=== PATIENT | male | born 1945 | race Caucasian/White ===

== ENCOUNTER 2018-01-11 08:42 | Inpatient (IN) | payer OTHER, MEDICARE ==
[~2018-01-11] VITALS: Ht 182.9 cm; Wt 106.2 kg
--- NOTE | 2018-01-11 09:05 | ED GENERAL ADULT ---
History of Present Illness General Chief Complaint: General Adult Stated Complaint: BIBA WEAKNESS Source: patient Exam Limitations: no limitations Vital Signs & Intake/Output Vital Signs & Intake/Output Vital Signs Date Time Temp Pulse Resp B/P B/P Pulse O2 O2 Flow FiO2 Mean Ox Delivery Rate 01/11 0851 96.1 77 18 133/71 98 Allergies Coded Allergies: Penicillins (HIVES AND HALLUCINATIONS 01/11/18) Triage Nurses Notes Reviewed? yes Onset: Abrupt Duration: hour(s): Timing: recent history HPI: 01/11/18 9 AM 72-year-old man presents to the emergency department for altered mental status. According to the family he has been not acting in his usual state of mental capacity. The patient denies any complaints. He does have a history of Parkinson's disease. There has been a recent change to his medications. No fever. Medics report that there was foul-smelling urine in the apartment. Past History Travel History Traveled to [place] past 21 day No Medical History Any Pertinent Medical History? see below for history Neurological: parkinson's disease Surgical History Surgical History: non-contributory Family History Hx Contributory? No Review of Systems Review of Systems Constitutional: Denies: fever. EENTM: Denies: double vision. Respiratory: Denies: short of breath. Cardiovascular: Denies: chest pain. GI: Denies: abdominal pain. Genitourinary: Reports: no symptoms. Musculoskeletal: Reports: see HPI. Skin: Denies: rash. Neurological/Psychological: Reports: see HPI. Hematologic/Endocrine: Reports: no symptoms. Immunologic/Allergic: Reports: no symptoms. Physical Exam Physical Exam General Appearance: well developed/nourished, no apparent distress, alert, awake , anxious Head: atraumatic, normal appearance Eyes: Bilateral: normal appearance, PERRL, EOMI. Ears, Nose, Throat: normal pharynx, normal ENT inspection Neck: normal inspection, supple, full range of motion Respiratory: normal breath sounds, chest non-tender Cardiovascular: regular rate/rhythm Peripheral Pulses: 4+ radial (R), 4+ radial (L) Gastrointestinal: soft, non-tender Back: decreased range of motion Extremities: pedal edema Neurologic/Psych: no motor/sensory deficits, awake, alert, oriented x 3 Skin: intact, normal color, warm/dry Core Measures ACS in differential dx? No CVA/TIA Diagnosis: No Sepsis Present: No Sepsis Focused Exam Completed? No Progress Differential Diagnoses I considered the following diagnoses in my evaluation of the patient: [ Intracranial bleed, exacerbation of Parkinson's, adverse drug reaction, UTI, sepsis] Plan of Care: Orders Procedure Date/time Status Heart Healthy Diet 01/11 D Active Admit to inpatient 01/11 1138 Active Vital Signs 01/11 1138 Active EKG 01/11 113 Active Code Status 01/11 113 Active Saline Lock 01/11 905 Active CULTURE,URINE 01/11 905 Active URINALYSIS 01/11 905 Active PROTHROMBIN TIME 01/11 905 Complete COMPREHENSIVE METABOLIC PANEL 01/11 905 Complete CBC WITHOUT DIFFERENTIAL 01/11 905 Complete Current Medications Sig/Too Start time Last Medication Dose Stop Time Status Admin Sodium Chloride 1,000 ML ONCE ONE 01/11 915 AC 01/11 (Normal Saline 0.9%) 01/11 1714 1000 Laboratory Tests 01/11/18 1000: Anion Gap 12, Estimated GFR 60, BUN/Creatinine Ratio 22.5, Glucose 174 H, Calcium 9.4, Total Bilirubin 0.4, AST 19, ALT 17 L, Alkaline Phosphatase 75, Total Protein 6.3, Albumin 3.5, Globulin 2.8, Albumin/Globulin Ratio 1.3, PT 13.7 H, INR 1.25 H, CBC w Diff NO MAN DIFF REQ, RBC 4.40 L, MCV 92.2, MCH 30.5, MCHC 33.0, RDW 14.5, MPV 7.9, Gran % 77.9 H, Lymphocytes % 12.8 L, Monocytes % 7.1, Eosinophils % 2.1, Basophils % 0.1, Absolute Granulocytes 6.4, Absolute Lymphocytes 1.1 L, Absolute Monocytes 0.6, Absolute Eosinophils 0.2, Absolute Basophils 0 Microbiology 01/11 905 URINE ROUT: Urine Culture - ORD Labs were sent and a CT of the head was ordered as the patient's on Pradaxa. Initial ED EKG: pending Departure Departure Disposition: STILL A PATIENT Condition: Stable Clinical Impression Primary Impression: Mental status alteration Secondary Impressions: Subdural hematoma Departure Forms: Customer Survey General Discharge Information Admission Note Spoke With: Vic Hudson MD Documentation of Exam: Documentation of any treatments & extenuating circumstances including Concerns Regarding Discharge (functional status, medication knowledge or non-compliance, living conditions, etc.) that warrant an admission rather than observation: [The patient needs admission for neurological evaluations every 6 hours, repeat CAT scan in the a.m., neurosurgical consultation, hold Pradajayme] CT scan and the case was discussed with Dr. Gilman - agrees with plan Critical Care Note Critical Care Note Critical Care Time: non-applicable
--- NOTE | 2018-01-11 10:01 | CT SCAN REPORT ---
EXAMINATION: CT HEAD WITHOUT CONTRAST CLINICAL INFORMATION: Altered mental status, on anticoagulation COMPARISON: None TECHNIQUE: Contiguous axial imaging was performed from the skull base to vertex without intravenous administration of contrast. DLP: 637 mGy-cm FINDINGS: There is a thin acute subdural hematoma along the midportion of the falx cerebri with maximal thickness of 3 mm. There is no significant mass effect. No additional intracranial hemorrhage is identified. There is mild diffuse cerebral volume loss with commensurate dilation of the ventricles. No evolving territorial infarction. Shah-white differentiation is maintained. No midline shift. The osseous structures and soft tissues are normal. The mastoid air cells and visualized portions of the paranasal sinuses are well aerated. IMPRESSION: Acute subdural hematoma along the midportion of the falx cerebri with maximal thickness of 3 mm.
[2018-01-11 10:29] LABS: ABSOLUTE BASOPHIL COUNT 0 /CUMM (0.0-0.2); ABSOLUTE EOSINOPHIL COUNT 0.2 /CUMM (0.0-0.7); ABSOLUTE GRANULOCYTE CT 6.4 /CUMM (1.4-6.5); ABSOLUTE LYMPH COUNT 1.1 /CUMM (1.2-3.4); ABSOLUTE MONOCYTE COUNT 0.6 /CUMM (0.10-0.60); BASOPHIL % 0.1 % (0.0-2.0); EOSINOPHIL % 2.1 % (0-5); GRANULOCYTE % 77.9 % (42.2-75.2); HEMATOCRIT 40.5 % (42-52); MEAN CORPUSCULAR HGB 30.5 PG (27.0-31.0); MEAN CORPUSCULAR VOLUME 92.2 FL (80.0-94.0); MEAN PLATELET VOLUME 7.9 FL (7.4-10.4); PLATELET COUNT 204 /CUMM (130-400); RBC DISTRIBUTION WIDTH 14.5 % (11.5-14.5); WHITE BLOOD CELL COUNT 8.3 /CUMM (4.8-10.8)
[2018-01-11 10:32] LABS: PT 13.7 SEC (9.4-12.5)
[2018-01-11] MEDS ORDERED: CARBIDOPA-LEVO1 EAC7 PO (12:08)
[2018-01-11] MEDS ORDERED: PRADAXA150 M2 PO (12:09)
[2018-01-11] MEDS ORDERED: MELATONIN3 M4 PO (12:09)
[2018-01-11] MEDS ORDERED: LEVOTHYROXINE25 MCG PO (12:10)
[2018-01-11] MEDS ORDERED: CRESTOR40 M2 PO (12:10)
[2018-01-11] MEDS ORDERED: QUETIAPINE FUMA25 M1 PO (12:10)
[2018-01-11] MEDS ORDERED: VITAMIN C500 M6 PO (12:11)
[2018-01-11] MEDS ORDERED: VITAMIN D1000 UNIT PO (12:12)
[2018-01-11] MEDS ORDERED: ACIDOPHILUS1 EACH PO (12:12)
[2018-01-11] MEDS ORDERED: IRON325 M3 PO (12:12)
--- NOTE | 2018-01-11 13:30 | History & Physical ---
Steffany CHOWDHURY,Juan 01/11/18 1330: General Information and HPI MD Statement: I have seen and personally examined STEPHANIE DIMAS and documented this H&P. The patient is a 72 year old M who presented with a patient stated chief complaint of [hallucination]. 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 Wilson in 2010, angioplasty(2010) BIBA from home because of weakness, stiffness. Patient was oriented to time place and person though in between he had gaps in the memory most of the history is taken from the . According to her he had hallucinations since last 1-1/2 month which were persistent and progressive. He does not wanted to involvement of any activity because of the stiffness that they visited to the neurologist on 01/07/2018. He was seen by PELT SALTER Ms tuttle, at Dr Bolden office. He was prescribed neuplazid, that worsens his hallucination. His hallucination continuously getting worse. Yesterday called [facility] to take care of him. He also called Dr. bolden office and advised to stop Neuplazid. In the morning called son to help him dressing out, but he was not very involved in activity, it was very difficult for him to stand him up, so they called 911 and brought him to the ED. Of note she also told that around 2 months ago when he was trying to sit down on chair his slid, but did not hit his head or injure himself. He had good appetite but drink only 1-2 bottles daily. Patient denies-headache, dizziness, blurry vision, difficulty in swallowing, chest pain, palpitation, abdominal pain, constipation, diarrhea, weakness in any part of the limb, fever, nausea, vomiting. Neurologist-Dr. bolden -[phone] at [facility] Primary care provider -Dr. Mack at [facility] Personal history -patient lives with his , walks with a walker for short distance denies smoking and alcohol Allergies-penicillin leading to hives Surgical history - Pacemaker and angioplasty in 2010 Parathyroidectomy Allergies/Medications Allergies: Coded Allergies: Penicillins (HIVES AND HALLUCINATIONS 01/11/18) Home Med list Ascorbate Calcium (Vitamin C) (Unknown Strength) TABLET (Unknown Dose) PO DAILY SUPPLEMENT (Reported) Carbidopa/Levodopa (Carbidopa-Levodopa 25-100 Tab) 25 MG-100 MG TABLET 1 TAB PO TID PARKINSONS (Reported) Cholecalciferol (Vitamin D3) (Vitamin D) (Unknown Strength) TABLET (Unknown Dose) PO DAILY SUPPLEMENT (Reported) Dabigatran Etexilate Mesylat (Pradaxa) 150 MG CAPSULE 1 CAP PO BID BLOOD THINNER (Reported) Ferrous Sulfate (IRON) 325 MG (65 MG IRON) TABLET 1 TAB PO DAILY SUPPLEMENT ( Reported) Lactobacillus Acidophilus (Acidophilus) 1 EACH CAPSULE 1 CAP PO DAILY PROBIOTIC (Reported) Levothyroxine Sodium 25 MCG TABLET 1 TAB PO DAILY THYROID (Reported) Melatonin 3 MG TABLET 1 TAB PO QHS SLEEP (Reported) Quetiapine Fumarate 25 MG TABLET 25 TAB PO OD psychosis (Reported) Rosuvastatin Calcium (Crestor) 40 MG TABLET 1 TAB PO DAILY CHOLESTEROL ( Reported) Past History Travel History Traveled to [place] past 21 day No Medical History Neurological: CVA, parkinson's disease Cardiovascular: hypertension, [employer] Isolation History: Standard Surgical History Surgical History: non-contributory Review of Systems Review of Systems Constitutional: Denies: no symptoms. Neurological/Psychological: Reports: other (hallucination). Exam & Diagnostic Data Last 24 Hrs of Vital Signs/I&O Vital Signs Date Time Temp Pulse Resp B/P B/P Pulse O2 O2 Flow FiO2 Mean Ox Delivery Rate 01/11 1254 97.3 69 18 178/80 98 Room Air 01/11 0945 Room Air 01/11 0851 96.1 77 18 133/71 98 Intake & Output 01/11 1600 01/11 0800 01/11 0000 Intake Total Output Total Balance Patient 106.594 kg Weight Weight Reported by Patient Measurement Method Physical Exam General Appearance Alert, Oriented X3, Cooperative, No Acute Distress Skin there are erosion on right knee, HEENT Atraumatic, PERRLA, EOMI Neck No JVD Cardiovascular Normal S1, Normal S2, systolic murmur, pacemaker pocket in left upper part of chest Lungs mild basilar crackles Abdomen Soft, No Tenderness Neurological slurred speech, facial deformity - droop in left size, residual weakness in left - 4/5 Extremities bilateral lower extremeties swelling Vascular cannt comment due to edema Last 24 Hrs of Labs/Haroldo: Laboratory Tests 01/11/18 1000: Anion Gap 12, Estimated GFR 60, BUN/Creatinine Ratio 22.5, Glucose 174 H, Calcium 9.4, Total Bilirubin 0.4, AST 19, ALT 17 L, Alkaline Phosphatase 75, Total Protein 6.3, Albumin 3.5, Globulin 2.8, Albumin/Globulin Ratio 1.3, PT 13.7 H, INR 1.25 H, CBC w Diff NO MAN DIFF REQ, RBC 4.40 L, MCV 92.2, MCH 30.5, MCHC 33.0, RDW 14.5, MPV 7.9, Gran % 77.9 H, Lymphocytes % 12.8 L, Monocytes % 7.1, Eosinophils % 2.1, Basophils % 0.1, Absolute Granulocytes 6.4, Absolute Lymphocytes 1.1 L, Absolute Monocytes 0.6, Absolute Eosinophils 0.2, Absolute Basophils 0 Microbiology 01/11 09 URINE ROUT: Urine Culture - ORD Diagnostic Data EKG Results HR 72, qtc 438, [id number] Other Results Ct scan -Acute subdural hematoma along the midportion of the falx cerebri with maximal thickness of 3 mm. 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 Wilson in 2010, angioplasty(2010) BIBA from home because of weakness, stiffness. ED course - Vital signs-temperature 96.1, pulse 77, respiratory rate 18, blood pressure 133/ 71, SPO2 98% on room air Blood workup -WBC 8.3, RBC 4.40, hemoglobin 13.4, hematocrit 40.5, platelet count 204, granulocyte 77.9, lymphocyte 12.8, serum sodium 145, potassium 4.5, chloride 107, carbon dioxide 37, anion gap 12, BUN 27, creatinine 1.2, glucose 174, calcium 9.4, total bilirubin 0.4, AST 19, ALT 17, alkaline phosphatase 75, total protein 6.3, albumin 3.5, globulin 2.8, PT/INR 13.7/1.25, CT scan of the head -Acute subdural hematoma along the midportion of the falx cerebri with maximal thickness of 3 mm. Assessment and plan - Discussed with Dr. bolden over the phone - According to him patient has history of posterior cerebellar stroke in the past even he send him to the [facility] without any improvement. He is on dabigatran because of the recurrent stroke and carotid artery stenosis. He has baseline hypercalcemia and renal insufficiency. He did reevaluated the patients old CT scan and told that patient didnt had any subdural hemorrhage or thickening of the falx cerebri.He thinks that this is acute or new changes. I confirm the medication with him.He started patient on tablet Newplazid recently,which was stopped after as his hallucinations got worse. Acute subdural hematoma along the midportion of the falx cerebri with maximal thickness of 3 mm - * We will hold dabigatran * Neuro check every 4 hourly * Repeat CT scan the next 24 hour * Follow-up neurosurgery consult * follow neurology consult Evaluation for UTI - * Follow-up with urinalysis and UC * If positive then inj ceftriaxone Chronic medical condition -hypertension, hyperlipidemia, stroke, carotid artery stenosis, hypothyroidism, Parkinson's disease with psychosis- * We will hold Pradaxa and nuplazid and continue rest of the medicine Code status - FC Diet - regular diet DVT prophylaxis - ALPS As Ranked By This Provider Problem List: 1. Subdural hematoma Core Measures/Misc (05/05) Acute Coronary Syndrome ACS Diagnosis: No Congestive Heart Failure Congestive Heart Failure Diagnosis No Cerebrovascular Accident CVA/TIA Diagnosis: No Comment pt has SDH VTE (View Protocol) VTE Risk Factors Age>40 No Mechanical VTE Prophylaxis d/t N/A MechProphylax Ordered No VTE Pharm Prophylaxis d/t Hemorrhagic CVA (SDH) Sepsis (View protocol) Sepsis Present: No If YES complete Sepsis Event Note If YES complete Sepsis Event Note [facility]18 1512: Core Measures/Misc (05/05) Sepsis (View protocol) If YES complete Sepsis Event Note If YES complete Sepsis Event Note Attending MD Review Statement Attending Statement Attending MD Statement: examined this patient, discuss w/resident/PA/PELT SALTER, agreed w/resident/PA/PELT SALTER, reviewed EMR data (avail) Attending Assessment/Plan: 72M PMH HTN, HLD, hypothyroidism, history of parathyroidectomy due to parathyroid adenoma, hypercalcemia, cerebellar stroke(2009) on Pradaxa, renal insufficiency, Parkinson's disease, carotid stenosis, history of pacemaker brought in by family for altered mental status. Per family, patient has been steadily declining for months, though his mental status can be labile, particularly since starting Nuplazid (Pimavenserin, a medication for Parkinson's psychosis). He has been having visual and auditory hallucinations on and off for several months, but it has worsened over the past day. He was extremely weak this morning and required his son to lift him to even stand. Patient is sleeping and not answering questions at this time. Per son, the patient had foul smelling urine this morning. He has no history of trauma and no other new medications. He has not hit his head at any point recently, per family. CT head shows questionable 3mm subdural hematoma. 1. Metabolic encephalopathy 2. UTI 3. Visual and auditory hallucinations 4. Parkinson's psychosis 5. Acute subdural hematoma Plan - Admit to general medicine - Ceftriaxone for UTI - Urine culture - Neurosurgery consulted by ED, per them will hold Pradaxa and recheck CT head tomorrow, will be evaluated by neurosurgery as consult - Neuro checks - Stop Nuplazid - Obtain records from patient's neurologist - Neurology consult - Continue remaining home medications - ALPS for DVT PPx, no anti-platelet or anti-coagulants
--- NOTE | 2018-01-11 14:03 | Event Note ---
Event Note Event Note: Discussed with Dr. bolden over the phone - According to him patient has history of posterior cerebellar stroke in the past even he send him to the [facility] without any improvement. He is on dabigatran because of the recurrent stroke and carotid artery stenosis. He has baseline hypercalcemia and renal insufficiency. He did reevaluated the patients old CT scan and told that patient didnt had any subdural hemorrhage or thickening of the falx cerebri.He thinks that this is acute or new changes. I confirm the medication with him.He started patient on tablet Newplazid recently,which was stopped after as his hallucinations got worse.
[2018-01-11 14:43] VITALS: BP 160/82
--- NOTE | 2018-01-11 15:17 | Admission Certification ---
Admission Certification Certification Statement - As attending physician, I certify that at the time of - admission, based on clinical presentation, severity of - symptoms, need for further diagnostic testing and - therapeutic interventions, and risk of adverse outcomes - without in-hospital treatment, in my clinical assessment, - this patient requires an acute hospital stay for a minimum - of two nights or longer. I have also considered psychsocial - factors such as support system, advanced age, financial - issues, cognitive issues, and failed out-patient treatments, - past re-admission history, safety of patient, and lack of - compliance as applicable. Specific rationale supporting this admission is: Acute delirium with small acute subdural hematoma
[2018-01-11 21:28] VITALS: BP 140/80
[2018-01-12 06:51] VITALS: BP 130/72
--- NOTE | 2018-01-12 08:30 | PN- Housestaff ---
See Addendum Subjective Follow-up For: SDH Subjective: Patient offers no complaints. at bedside reports patient was hallucinating this morning. He denies blurry vision, CASTRO, SOB, CP, hematuria or bloody stools Review of Systems Constitutional: Reports: see HPI. Objective Last 24 Hrs of Vital Signs/I&O Vital Signs Date Time Temp Pulse Resp B/P B/P Pulse O2 O2 Flow FiO2 Mean Ox Delivery Rate 01/12 0651 97.4 60 20 130/72 95 Room Air 01/11 2128 97.7 78 20 140/80 96 01/11 1443 97.9 64 20 160/82 96 Room Air 01/11 1338 96 Room Air 01/11 1254 97.3 69 18 178/80 98 Room Air Intake & Output 01/12 1600 01/12 0800 01/12 0000 Intake Total 250 1360 Output Total 350 Balance 250 1010 Intake, IV 10 1000 Intake, Oral 240 360 Number 3 Bowel Movements Output, Urine 350 Physical Exam General Appearance: Alert, Oriented X3, Cooperative, No Acute Distress Cardiovascular: Regular Rate, Normal S1, Normal S2 Lungs: Clear to Auscultation, Normal Air Movement Abdomen: Normal Bowel Sounds, Soft, No Tenderness Extremities: 1+ edema Current Medications: Current Medications Sig/Too Start time Last Medication Dose Route Stop Time Status Admin Atorvastatin Calcium 40 MG 1700 01/11 1700 AC 01/11 PO 1629 Carbidopa/Levodopa 1 TAB TID 01/11 1400 AC 01/12 PO 0845 Ceftriaxone Sodium 1,000 MG DAILY 01/12 0914 AC IV Cholecalciferol 400 IU DAILY 01/11 1220 AC 01/12 PO 0845 Dabigatran 150 MG BID 01/11 2100 CAN PO Enoxaparin Sodium 40 MG DAILY 01/11 1218 DC SC Ferrous Sulfate 325 MG DAILY@0700 01/12 0700 AC 01/12 PO 0625 Lactobacillus 1 CAP DAILY 01/12 0900 AC 01/12 Acidophilus PO 0845 Levothyroxine Sodium 0.025 MG DAILY AC 01/12 0700 AC 01/12 PO 0625 Melatonin 3 MG 2200 01/11 2200 AC 01/11 PO 2016 Quetiapine Fumarate 25 MG QPM 01/11 2100 AC 01/11 PO 2016 Quetiapine Fumarate 625 MG .[OD] 01/11 1400 DC PO Sodium Chloride 1,000 ML ONCE ONE 01/11 0915 DC 01/11 IV 01/11 1714 1000 Last 24 Hrs of Lab/Haroldo Results Last 24 Hrs of Labs/Mics: Laboratory Tests 01/12/18 0625: Anion Gap 6, Estimated GFR > 60, BUN/Creatinine Ratio 21.8, CBC w Diff NO MAN DIFF REQ, RBC 3.79 L, MCV 91.6, MCH 31.3 H, MCHC 34.2, RDW 14.4, MPV 7.9, Gran % 65.3, Lymphocytes % 21.7, Monocytes % 8.4, Eosinophils % 4.4, Basophils % 0.2, Absolute Granulocytes 4.4, Absolute Lymphocytes 1.5, Absolute Monocytes 0.6, Absolute Eosinophils 0.3, Absolute Basophils 0 01/11/182245: Urine Color YEL, Urine Clarity HAZY H, Urine pH 6.0, Ur Specific [place] 1.020, Urine Protein NEG, Urine Ketones NEG, Urine Nitrite NEG, Urine Bilirubin NEG, Urine Urobilinogen 1.0, Ur Leukocyte Esterase MOD H, Ur Microscopic SEDIMENT EXAMINED, Urine RBC 5-10 H, Urine WBC 10-15 H, Ur Epithelial Cells FEW, Urine Hemoglobin MOD H, Urine Glucose NEG Microbiology 01/11 2246 URINE ROUT: Urine Culture - RES Assessment/Plan Assessment: Patient is a 72-year-old male past medical history of hypertension, hyperlipidemia, hypothyroidism, 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 Wilson in 2010, angioplasty(2010) BIBA from home because of weakness, stiffness. Acute subdural hematoma along the midportion of the falx cerebri with maximal thickness of 3 mm - stable * We will hold dabigatran * Neuro check every 4 hourly * Repeat CT scan showed stable 3 mm SDH * Appreciate neurosurgery recommendations * Appreciate neurology recommendations Evaluation for UTI - ruled out Chronic medical condition -hypertension, hyperlipidemia, stroke, carotid artery stenosis, hypothyroidism, Parkinson's disease with psychosis- * We will hold Pradaxa and nuplazid Code status - FC Diet - regular diet DVT prophylaxis - ALPS Problem List: 1. Subdural hematoma Pain Ratin Pain Location: NA Pain Goal: Remain pain free Pain Plan: NA Tomorrow's Labs & Rationales: CBC, BEP
[2018-01-12 09:08] LABS: ABSOLUTE BASOPHIL COUNT 0 /CUMM (0.0-0.2); ABSOLUTE EOSINOPHIL COUNT 0.3 /CUMM (0.0-0.7); ABSOLUTE GRANULOCYTE CT 4.4 /CUMM (1.4-6.5); RED BLOOD CELL CT 3.79 /CUMM (4.70-6.10)
--- NOTE | 2018-01-12 09:19 | CT SCAN REPORT ---
EXAMINATION: CT HEAD WITHOUT CONTRAST CLINICAL INFORMATION: Hallucinations/SDH. COMPARISON: Head CT 01/11/2018. TECHNIQUE: Contiguous axial imaging was performed from the skull base to vertex without intravenous administration of contrast. DLP: 694 mGy-cm. FINDINGS: There is stable 3 mm thick hyperdensity along the left aspect of the falx compatible with minimal subdural hemorrhage. No new extra-axial or parenchymal hemorrhage. No CT evidence of large territory infarction. Stable ventricular size. Redemonstration of mild small vessel ischemic changes and mild diffuse brain parenchymal volume loss with slightly disproportionate cerebellar volume loss. The extracranial structures are stable. IMPRESSION: - Stable 3 mm thick hyperdensity along the left aspect of the falx compatible with minimal subdural hematoma. - No new hemorrhage or new intracranial abnormality.
[2018-01-12 09:27] LABS: ABSOLUTE LYMPH COUNT 1.5 /CUMM (1.2-3.4); ABSOLUTE MONOCYTE COUNT 0.6 /CUMM (0.10-0.60); BASOPHIL % 0.2 % (0.0-2.0); EOSINOPHIL % 4.4 % (0-5); GRANULOCYTE % 65.3 % (42.2-75.2); MEAN CORPUSCULAR HGB 31.3 PG (27.0-31.0); MEAN CORPUSCULAR HGB CONC 34.2 G/DL (33.0-37.0); MEAN CORPUSCULAR VOLUME 91.6 FL (80.0-94.0); MEAN PLATELET VOLUME 7.9 FL (7.4-10.4); PLATELET COUNT 186 /CUMM (130-400); RBC DISTRIBUTION WIDTH 14.4 % (11.5-14.5); WHITE BLOOD CELL COUNT 6.7 /CUMM (4.8-10.8)
[2018-01-12 09:31] LABS: HEMATOCRIT 34.7 % (42-52)
[2018-01-12 13:43] VITALS: BP 100/80
--- NOTE | 2018-01-12 15:47 | Cons- Neurology ---
General Information and HPI Consulting Request Date of Consult: 01/12/18 Requested By: Vic Hudson MD Reason for Consult: Finding on CT Source of Information: old records Exam Limitations: unable to give history, confusion, poor historian History of Present Illness: 72 year old man who has advanced PD (gait predominant with falls) and is followed by Dr. Hernandez, currently in the hospital for increased hallucinations. He has had hallucinations related to PD for quite a while, and was start on Nuplaiz recently, however, that backfired and they got worse. When he arrived at the hospital he had a NCHCT that revealed a "3mm subdural along the falx". This finding was unchanged on the next CT. Denies any headaches or new focal complaints. Allergies/Medications Allergies: Coded Allergies: Penicillins (HIVES AND HALLUCINATIONS 01/11/18) Home Med List: Ascorbate Calcium (Vitamin C) (Unknown Strength) TABLET (Unknown Dose) PO DAILY SUPPLEMENT (Reported) Carbidopa/Levodopa (Carbidopa-Levodopa 25-100 Tab) 25 MG-100 MG TABLET 1 TAB PO TID PARKINSONS (Reported) Cholecalciferol (Vitamin D3) (Vitamin D) (Unknown Strength) TABLET (Unknown Dose) PO DAILY SUPPLEMENT (Reported) Dabigatran Etexilate Mesylat (Pradaxa) 150 MG CAPSULE 1 CAP PO BID BLOOD THINNER (Reported) Ferrous Sulfate (IRON) 325 MG (65 MG IRON) TABLET 1 TAB PO DAILY SUPPLEMENT ( Reported) Lactobacillus Acidophilus (Acidophilus) 1 EACH CAPSULE 1 CAP PO DAILY PROBIOTIC (Reported) Levothyroxine Sodium 25 MCG TABLET 1 TAB PO DAILY THYROID (Reported) Melatonin 3 MG TABLET 1 TAB PO QHS SLEEP (Reported) Quetiapine Fumarate 25 MG TABLET 25 TAB PO OD psychosis (Reported) Rosuvastatin Calcium (Crestor) 40 MG TABLET 1 TAB PO DAILY CHOLESTEROL ( Reported) Current Medications: Current Medications Sig/Too Start time Last Medication Dose Route Stop Time Status Admin Atorvastatin Calcium 40 MG 1700 01/11 1700 AC 01/11 PO 1629 Carbidopa/Levodopa 1 TAB TID 01/11 1400 AC 01/12 PO 1338 Ceftriaxone Sodium 1,000 MG DAILY 01/12 0914 AC 01/12 IV 1035 Cholecalciferol 400 IU DAILY 01/11 1220 AC 01/12 PO 0845 Ferrous Sulfate 325 MG DAILY@0700 01/12 0700 AC 01/12 PO 0625 Lactobacillus 1 CAP DAILY 01/12 0900 AC 01/12 Acidophilus PO 0845 Levothyroxine Sodium 0.025 MG DAILY AC 01/12 0700 AC 01/12 PO 624 Melatonin 3 MG 2200 01/11 2200 AC 01/11 PO 2015 Quetiapine Fumarate 25 MG QPM 01/11 2100 AC 01/11 PO 2015 Sodium Chloride 1,000 ML Q20H 01/12 1145 AC 01/12 IV 1217 Sodium Chloride 1,000 ML ONCE ONE 01/11 0915 DC 01/11 IV 01/11 1714 1000 Review of Systems Review of Systems: Negative to the 10 point complete review of system. Past History Travel History Traveled to [place] past 21 day No Medical History Neurological: CVA, parkinson's disease Cardiovascular: hypertension, [employer]ACE [employer] Surgical History Surgical History: non-contributory Psychosocial History Where Do You Live? Home Services at Home: Home Health Aide, Nursing Smoking Status: Never Smoked Exam & Diagnostic Data Vital Signs and I&O Vital Signs Date Time Temp Pulse Resp B/P B/P Pulse O2 O2 Flow FiO2 Mean Ox Delivery Rate 01/12 1343 97.6 80 18 100/80 97 Room Air 01/12 0651 97.4 60 20 130/72 95 Room Air 01/11 2128 97.7 78 20 140/80 96 Intake & Output 01/12 1600 01/12 0800 01/12 0000 Intake Total 962 569 6973 Output Total 350 Balance 752 151 2747 Intake, IV 855 69 1584 Intake, Oral 800 240 360 Number 3 Bowel Movements Output, Urine 350 Physical Exam: Somnolent, confused, disoriented x 2. EOMI, MARILYN, face symmetric. Bradyphrenia and Bradykinesia + No rest tremor. Diffuse rigidity. Gait deferred. Cannot follow rest of exam. Last 48 Hours of Lab Results: Laboratory Tests 01/12 01/11 0625 2246 Chemistry Sodium (137 - 145 mmol/L) 143 Potassium (3.5 - 5.1 mmol/L) 4.2 Chloride (98 - 107 mmol/L) 109 H Carbon Dioxide (22 - 30 mmol/L) 28 Anion Gap (5 - 16) 6 BUN (9 - 20 mg/dL) 24 H Creatinine (0.7 - 1.2 mg/dL) 1.1 Estimated GFR (>60 ml/min) > 60 BUN/Creatinine Ratio (7 - 25 %) 21.8 Hematology CBC w Diff NO MAN DIFF REQ WBC (4.8 - 10.8 /CUMM) 6.7 RBC (4.70 - 6.10 /CUMM) 3.79 L Hgb (14.0 - 18.0 G/DL) 11.9 L Hct (42 - 52 %) 34.7 L MCV (80.0 - 94.0 FL) 91.6 MCH (27.0 - 31.0 PG) 31.3 H MCHC (33.0 - 37.0 G/DL) 34.2 RDW (11.5 - 14.5 %) 14.4 Plt Count (130 - 400 /CUMM) 186 MPV (7.4 - 10.4 FL) 7.9 Gran % (42.2 - 75.2 %) 65.3 Lymphocytes % (20.5 - 51.1 %) 21.7 Monocytes % (1.7 - 9.3 %) 8.4 Eosinophils % (0 - 5 %) 4.4 Basophils % (0.0 - 2.0 %) 0.2 Absolute Granulocytes (1.4 - 6.5 /CUMM) 4.4 Absolute Lymphocytes (1.2 - 3.4 /CUMM) 1.5 Absolute Monocytes (0.10 - 0.60 /CUMM) 0.6 Absolute Eosinophils (0.0 - 0.7 /CUMM) 0.3 Absolute Basophils (0.0 - 0.2 /CUMM) 0 Urines Urine Color (YEL,AMB,STR) YEL Urine Clarity (CLEAR) HAZY H Urine pH (5.0 - 8.0) 6.0 Ur Specific [place] (1.001 - 1.035) 1.020 Urine Protein (NEG,<30 MG/DL) NEG Urine Ketones (NEG) NEG Urine Nitrite (NEG) NEG Urine Bilirubin (NEG) NEG Urine Urobilinogen (0.1 - 1.0 EU/dl) 1.0 Ur Leukocyte Esterase (NEG) MOD H Ur Microscopic SEDIMENT EXAMINED Urine RBC (0 - 5 /HPF) 5-10 H Urine WBC (0 - 2 /HPF) 10-15 H Ur Epithelial Cells (NONE,FEW) FEW Urine Hemoglobin (NEG) MOD H Urine Glucose (N MG/DL) NEG 01/11 1000 Chemistry Sodium (137 - 145 mmol/L) 145 Potassium (3.5 - 5.1 mmol/L) 4.5 Chloride (98 - 107 mmol/L) 107 Carbon Dioxide (22 - 30 mmol/L) 27 Anion Gap (5 - 16) 12 BUN (9 - 20 mg/dL) 27 H Creatinine (0.7 - 1.2 mg/dL) 1.2 Estimated GFR (>60 ml/min) 60 BUN/Creatinine Ratio (7 - 25 %) 22.5 Glucose (65 - 99 mg/dL) 174 H Calcium (8.4 - 10.2 mg/dL) 9.4 Total Bilirubin (0.2 - 1.3 mg/dL) 0.4 AST (17 - 59 U/L) 19 ALT (21 - 72 U/L) 17 L Alkaline Phosphatase (< 127 U/L) 75 Total Protein (6.3 - 8.2 g/dL) 6.3 Albumin (3.5 - 5.0 g/dL) 3.5 Globulin (1.9 - 4.2 gm/dL) 2.8 Albumin/Globulin Ratio (1.1 - 2.2 %) 1.3 Coagulation PT (9.4 - 12.5 SEC) 13.7 H INR (0.90 - 1.17) 1.25 H Hematology CBC w Diff NO MAN DIFF REQ WBC (4.8 - 10.8 /CUMM) 8.3 RBC (4.70 - 6.10 /CUMM) 4.40 L Hgb (14.0 - 18.0 G/DL) 13.4 L Hct (42 - 52 %) 40.5 L MCV (80.0 - 94.0 FL) 92.2 MCH (27.0 - 31.0 PG) 30.5 MCHC (33.0 - 37.0 G/DL) 33.0 RDW (11.5 - 14.5 %) 14.5 Plt Count (130 - 400 /CUMM) 204 MPV (7.4 - 10.4 FL) 7.9 Gran % (42.2 - 75.2 %) 77.9 H Lymphocytes % (20.5 - 51.1 %) 12.8 L Monocytes % (1.7 - 9.3 %) 7.1 Eosinophils % (0 - 5 %) 2.1 Basophils % (0.0 - 2.0 %) 0.1 Absolute Granulocytes (1.4 - 6.5 /CUMM) 6.4 Absolute Lymphocytes (1.2 - 3.4 /CUMM) 1.1 L Absolute Monocytes (0.10 - 0.60 /CUMM) 0.6 Absolute Eosinophils (0.0 - 0.7 /CUMM) 0.2 Absolute Basophils (0.0 - 0.2 /CUMM) 0 Imaging/Other Studies: FINDINGS: There is stable 3 mm thick hyperdensity along the left aspect of the falx compatible with minimal subdural hemorrhage. No new extra-axial or parenchymal hemorrhage. No CT evidence of large territory infarction. Stable ventricular size. Redemonstration of mild small vessel ischemic changes and mild diffuse brain parenchymal volume loss with slightly disproportionate cerebellar volume loss. The extracranial structures are stable. IMPRESSION: - Stable 3 mm thick hyperdensity along the left aspect of the falx compatible with minimal subdural hematoma. - No new hemorrhage or new intracranial abnormality. Assessment/Plan Assessment: 72 year old man with PD and hallucinations who failed Nuplazid, who was found to have an incidental finding of a POSSIBLE TINY subdural along the falx. This could hyperdensity could easily also be ossification with calcium deposits along the falx. Even if it was a subdural it is so tiny and insignificant and will not progress. It has no bearing on his hallucinations or current condition. Recommendations: Avoid further NCHCT. No need for further intervention. Neurology signing off. Consult Acknowledgment - Thank you for your consult request.
[2018-01-12 22:33] VITALS: BP 130/80
[2018-01-13 05:57] VITALS: BP 148/82
--- NOTE | 2018-01-13 08:46 | PN- Housestaff ---
Brett Smith 01/13/18 0846: Subjective Follow-up For: SDH Subjective: Patient offers no complaints. Denies hallucinations, nausea, vomiting, CASTRO, blurry vision, weakness or numbness Review of Systems Constitutional: Reports: see HPI. Objective Last 24 Hrs of Vital Signs/I&O Vital Signs Date Time Temp Pulse Resp B/P B/P Pulse O2 O2 Flow FiO2 Mean Ox Delivery Rate 01/13 0557 97.3 71 20 148/82 96 Room Air 01/12 2233 98.0 67 18 130/80 95 01/12 1343 97.6 80 18 100/80 97 Room Air Intake & Output 01/13 1600 01/13 0800 01/13 0000 Intake Total 420 700 Output Total Balance 420 700 Intake, IV 400 400 Intake, Oral 20 300 Physical Exam General Appearance: Alert, Oriented X3, Cooperative, No Acute Distress Cardiovascular: Regular Rate, Normal S1, Normal S2 Lungs: Clear to Auscultation, Normal Air Movement Abdomen: Normal Bowel Sounds, Soft, No Tenderness Extremities: Trace edema Current Medications: Current Medications Sig/Too Start time Last Medication Dose Route Stop Time Status Admin Atorvastatin Calcium 40 MG 1700 01/11 1700 AC 01/12 PO 1736 Carbidopa/Levodopa 1 TAB TID 01/11 1400 AC 01/13 PO 0842 Ceftriaxone Sodium 1,000 MG DAILY 01/12 0914 AC 01/13 IV 0842 Cholecalciferol 400 IU DAILY 01/11 1220 AC 01/13 PO 0842 Dabigatran 150 MG BID 01/13 1135 UNVr PO Ferrous Sulfate 325 MG DAILY@0700 01/12 0700 AC 01/13 PO 0622 Lactobacillus 1 CAP DAILY 01/12 0900 AC 01/13 Acidophilus PO 0843 Levothyroxine Sodium 0.025 MG DAILY AC 01/12 0700 AC 01/13 PO 0621 Melatonin 3 MG 2200 01/11 2200 AC 01/12 PO 2038 Quetiapine Fumarate 25 MG QPM 01/11 2100 AC 01/12 PO 2038 Sodium Chloride 1,000 ML Q20H 01/12 1145 AC 01/13 IV 0621 Last 24 Hrs of Lab/Haroldo Results Last 24 Hrs of Labs/Mics: Laboratory Tests 01/13/18 0635: Anion Gap 9, Estimated GFR 60, BUN/Creatinine Ratio 22.5, CBC w Diff NO MAN DIFF REQ, RBC 4.00 L, MCV 92.8, MCH 30.7, MCHC 33.1, RDW 14.1, MPV 7.9, Gran % 67.4, Lymphocytes % 19.2 L, Monocytes % 8.4, Eosinophils % 4.7, Basophils % 0.3, Absolute Granulocytes 4.6, Absolute Lymphocytes 1.3, Absolute Monocytes 0.6, Absolute Eosinophils 0.3, Absolute Basophils 0 Assessment/Plan Assessment: Patient is a 72-year-old male past medical history of hypertension, hyperlipidemia, hypothyroidism, 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 Wilson in 2010, angioplasty(2010) BIBA from home because of weakness, stiffness. Acute subdural hematoma along the midportion of the falx cerebri with maximal thickness of 3 mm - stable * We will resume dabigatran * Neuro check every 4 hourly * Repeat CT scan showed stable 3 mm SDH * Appreciate neurosurgery recommendations * Appreciate neurology recommendations * Spoke with Dr. Ogden in regards to resuming dabigatran. He states that he does not think it was an actual SDH and more likely a calcification so resuming dabigatran should not be a problem given his previous hx of CVA. He can follow up with him as an outpatient after having a CT head in 1 week Evaluation for UTI - ruled out Chronic medical condition -hypertension, hyperlipidemia, stroke, carotid artery stenosis, hypothyroidism, Parkinson's disease with psychosis- * Continue Pradaxa and nuplazid Code status - FC Diet - regular diet DVT prophylaxis - ALPS Problem List: 1. Subdural hematoma Pain Ratin Pain Location: NA Pain Goal: Remain pain free Pain Plan: NA Tomorrow's Labs & Rationales: CALI Carlos MD,[facility] 01/13/18 1139: Attending MD Review Statement Attending Statement Attending MD Statement: examined this patient, discuss w/resident/PA/WASTE DISPOSAL ATTENDANT, agreed w/resident/PA/WASTE DISPOSAL ATTENDANT, reviewed EMR data (avail), discussed with nursing, discussed with case mgmt, reviewed images, amended to note Attending Assessment/Plan: 72-year-old male with PMH of hypertension, hyperlipidemia, hypothyroidism, parathyroid adenoma s/p parathyroidectomy, hypercalcemia, cerebellar stroke(2009 ), renal insufficiency, Parkinson's disease(2016), carotid stenosis, history of pacemaker(secondary to asystole by Dr. Wilson in 2010, angioplasty(2010) was initially admitted for weakness and found to have a stable acute SDH along the mid postrion of the falx cerebri with maximal thickness of 3 mm. Neurology and Neurosurgery recommendations appricated and pt being managed conservatively. Resume Pradaxa. Cont the rest of his home medications, OT/PT consult, ALPS, full code. No need for further imaging or intervention. Vitals stable and labs reviewed, Patient is stable to be discharged pending PT recommendations to STR or home.
[2018-01-13 09:19] LABS: ABSOLUTE BASOPHIL COUNT 0 /CUMM (0.0-0.2); ABSOLUTE EOSINOPHIL COUNT 0.3 /CUMM (0.0-0.7); ABSOLUTE GRANULOCYTE CT 4.6 /CUMM (1.4-6.5); ABSOLUTE LYMPH COUNT 1.3 /CUMM (1.2-3.4); ABSOLUTE MONOCYTE COUNT 0.6 /CUMM (0.10-0.60); BASOPHIL % 0.3 % (0.0-2.0); EOSINOPHIL % 4.7 % (0-5); GRANULOCYTE % 67.4 % (42.2-75.2); HEMATOCRIT 37.2 % (42-52); MEAN CORPUSCULAR HGB 30.7 PG (27.0-31.0); MEAN CORPUSCULAR HGB CONC 33.1 G/DL (33.0-37.0); MEAN CORPUSCULAR VOLUME 92.8 FL (80.0-94.0); MEAN PLATELET VOLUME 7.9 FL (7.4-10.4); PLATELET COUNT 188 /CUMM (130-400); RBC DISTRIBUTION WIDTH 14.1 % (11.5-14.5); WHITE BLOOD CELL COUNT 6.8 /CUMM (4.8-10.8)
--- NOTE | 2018-01-13 11:37 | Patient Discharge Instructions ---
Discharge Instructions General Discharge Information You were seen/treated for: In mental status Watch for these problems: Headache, blurry vision, nausea, or vomiting. If any of these symptoms occur come to the ED for further evaluation Special Instructions: Follow up with your PCP within [address] head done in 1 week and if positive bleeding reports this to the Neurologist and follow up with him after the imaging is done Diet Recommended Diet: Heart Healthy Activity Full Activity/No Limits: No Activity Self Limited: Yes Acute Coronary Syndrome Inclusion Criteria At DC or during hospital stay patient has or had the following: ACS DIAGNOSIS No Discharge Core Measures Meds if any: Prescribed or Continued at Discharge Meds if any: NOT Prescribed or Continued at Discharge Congestive Heart Failure Inclusion Criteria At DC or during hospital stay patient has or had the following: CHF DIAGNOSIS No Discharge Core Measures Meds if any: Prescribed or Continued at Discharge Meds if any: NOT Prescribed or Continued at Discharge Cerebrovascular accident Inclusion Criteria At DC or during hospital stay patient has or had the following: CVA/TIA Diagnosis No Discharge Core Measures Meds if any: Prescribed or Continued at Discharge Meds if any: NOT Prescribed or Continued at Discharge Venous thromboembolism Inclusion Criteria VTE Diagnosis No VTE Type NONE VTE Confirmed by (Test) NONE Discharge Core Measures - Per Current guidelines, there needs to be overlap - treatment for the first 5 days of Warfarin therapy. - If discharged on Warfarin prior to 5 days of - overlap therapy, the patient will need to be - assessed for post discharge needs including - *Post discharge parental anticoagulation - *Warfarin and/or parental anticoagulation education - *Follow up date to check INR post discharge At least 5 days overlap therapy as Inpatient No Meds if any: Prescribed or Continued at Discharge Note: Overlap Therapy is Warfarin and Anticoagulant Meds if any: NOT Prescribed or Continued at Discharge
[2018-01-13 14:10] VITALS: BP 120/80
[2018-01-13 21:35] VITALS: BP 110/58
[2018-01-14 06:20] VITALS: BP 116/60
--- NOTE | 2018-01-14 07:21 | PN- Housestaff ---
Subjective Follow-up For: Altered mental status Subdural hematoma-stable Subjective: Patient seen and examined at bedside. No overnight events. Patient is alert and oriented 3. He denies vision changes, weakness, altered sensation Review of Systems Constitutional: Reports: no symptoms, see HPI. Objective Last 24 Hrs of Vital Signs/I&O Vital Signs Date Time Temp Pulse Resp B/P B/P Pulse O2 O2 Flow FiO2 Mean Ox Delivery Rate 01/14 1056 Room Air 01/14 1052 Room Air 01/14 1041 Room Air 01/14 0620 97.6 60 18 116/60 95 Room Air 01/14 0000 Room Air 01/13 2135 97.7 66 20 110/58 95 01/13 1410 97.4 70 20 120/80 97 Room Air Intake & Output 01/14 1600 01/14 0800 01/14 0000 Intake Total 360 800 Output Total Balance 360 800 Intake, IV 400 Intake, Oral 360 400 Number 0 Bowel Movements Physical Exam General Appearance: Alert, Oriented X3, Cooperative, No Acute Distress Cardiovascular: Regular Rate, Normal S1, Normal S2, No Murmurs Lungs: Clear to Auscultation Abdomen: Soft, No Tenderness, No Hepatospenomegaly Neurological: Normal Speech, Strength at 5/5 X4 Ext, Normal Tone, Sensation Intact Current Medications: Current Medications Sig/Too Start time Last Medication Dose Route Stop Time Status Admin Atorvastatin Calcium 40 MG 1700 01/11 1700 AC 01/13 PO 1634 Carbidopa/Levodopa 1 TAB TID 01/11 1400 AC 01/14 PO 0850 Ceftriaxone Sodium 1,000 MG DAILY 01/12 0914 DC 01/13 IV 01/14 0901 0842 Cholecalciferol 400 IU DAILY 01/11 1220 AC 01/14 PO 0850 Dabigatran 150 MG BID 01/13 1135 AC 01/14 PO 0850 Ferrous Sulfate 325 MG DAILY@0700 01/12 0700 AC 01/14 PO 0523 Lactobacillus 1 CAP DAILY 01/12 0900 AC 01/14 Acidophilus PO 0850 Levothyroxine Sodium 0.025 MG DAILY AC 01/12 0700 AC 01/14 PO 0522 Melatonin 3 MG 2200 01/11 2200 AC 01/13 PO 2017 Quetiapine Fumarate 25 MG QPM 01/11 2100 AC 01/13 PO 2016 Sodium Chloride 1,000 ML Q20H 01/12 1145 DC 01/14 IV 0120 Last 24 Hrs of Lab/Haroldo Results Last 24 Hrs of Labs/Mics: Laboratory Tests 01/14/18 0733: CBC w Diff NO MAN DIFF REQ, RBC 3.73 L, MCV 92.5, MCH 30.7, MCHC 33.2, RDW 13.9 , MPV 7.5, Gran % 73.3, Lymphocytes % 14.0 L, Monocytes % 8.0, Eosinophils % 4.5, Basophils % 0.2, Absolute Granulocytes 5.2, Absolute Lymphocytes 1.0 L, Absolute Monocytes 0.6, Absolute Eosinophils 0.3, Absolute Basophils 0 Assessment/Plan Assessment: Patient is a 72-year-old male past medical history of hypertension, hyperlipidemia, hypothyroidism, 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 Wilson in 2010, angioplasty(2010) BIBA from home because of weakness, stiffness. Assessment and plan Altered mental status Unsure at this point may be secondary due to nuplazid which was started recently. Patient was seen by neurologist who suggested to do continue current management and restart him on Dabigatran. We will continue holding his nuplazid. Patient can follow up with his neurologist at [place]. Subdural hematoma-stable. Patient will require a CAT scan in 1 week and follow with his neurologist. Patient is likely discharged to short-term rehabilitation if bed is available. Problem List: 1. Subdural hematoma 2. Mental status alteration Pain Ratin Pain Location: none Pain Goal: Remain pain free Pain Plan: tylenol Tomorrow's Labs & Rationales: none
[2018-01-14 08:12] LABS: ABSOLUTE BASOPHIL COUNT 0 /CUMM (0.0-0.2); ABSOLUTE EOSINOPHIL COUNT 0.3 /CUMM (0.0-0.7); ABSOLUTE GRANULOCYTE CT 5.2 /CUMM (1.4-6.5); ABSOLUTE MONOCYTE COUNT 0.6 /CUMM (0.10-0.60); BASOPHIL % 0.2 % (0.0-2.0); EOSINOPHIL % 4.5 % (0-5); GRANULOCYTE % 73.3 % (42.2-75.2); HEMATOCRIT 34.5 % (42-52); MEAN CORPUSCULAR HGB 30.7 PG (27.0-31.0); MEAN CORPUSCULAR HGB CONC 33.2 G/DL (33.0-37.0); MEAN CORPUSCULAR VOLUME 92.5 FL (80.0-94.0); MEAN PLATELET VOLUME 7.5 FL (7.4-10.4); PLATELET COUNT 180 /CUMM (130-400); RBC DISTRIBUTION WIDTH 13.9 % (11.5-14.5); RED BLOOD CELL CT 3.73 /CUMM (4.70-6.10); WHITE BLOOD CELL COUNT 7.1 /CUMM (4.8-10.8)
--- NOTE | 2018-01-14 09:28 | Discharge Summary ---
Visit Information Visit Dates Admission Date: 01/11/18 Discharge Date: 01/14/2018 Hospital Course Course Attending Physician: Lynn Park MD Primary Care Physician: Adria Mack MD Hospital Course: Patient is a 72-year-old male past medical history of hypertension, hyperlipidemia, hypothyroidism, 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 Wilson in 2010, angioplasty(2010) BIBA from home because of weakness, stiffness. ED course - Vital signs-temperature 96.1, pulse 77, respiratory rate 18, blood pressure 133/ 71, SPO2 98% on room air Blood workup -WBC 8.3, RBC 4.40, hemoglobin 13.4, hematocrit 40.5, platelet count 204, granulocyte 77.9, lymphocyte 12.8, serum sodium 145, potassium 4.5, chloride 107, carbon dioxide 37, anion gap 12, BUN 27, creatinine 1.2, glucose 174, calcium 9.4, total bilirubin 0.4, AST 19, ALT 17, alkaline phosphatase 75, total protein 6.3, albumin 3.5, globulin 2.8, PT/INR 13.7/1.25, CT scan of the head -Acute subdural hematoma along the midportion of the falx cerebri with maximal thickness of 3 mm. Acute subdural hematoma along the midportion of the falx cerebri with maximal thickness of 3 mm - We admitted the patient to general medicine floor and holded Dabigatran.We started patient on IV fluids 75 cc/h and ceftriaxone for dehydration and UTI, respectively.We obtained neurology consult. According to Dr. Ogden, Ct scan finding can be ossification with calcium deposits along the falx, very small SDH. Even if it was a subdural it is so tiny and insignificant and will not progress.On repeated CT scan, size of SDH remains the same. We resumed dabigatran as before and discharged the patient with advice to have follow-up CT scan within a week of discharge.We also advised to follow up with neurologist. Symptomatic UTI -culture negative - Family was complaining of the patient has foul-smelling urine, urinalysis showed moderate leukocyte esterase, RBC 5-10, WBC 10-15, moderate hemoglobin. We started patient on injection ceftriaxone.Follow-up urine culture did show the growth of multiple bacteria possible contamination. We stopped antibiotic.We dvised to follow up with PCP with in week of discharge. Chronic medical condition -hypertension, hyperlipidemia, stroke, carotid artery stenosis, hypothyroidism, Parkinson's disease with psychosis- We held nuplazid after discussing with Dr Hernandez and continued rest of the medicines. Allergies: Coded Allergies: Penicillins (HIVES AND HALLUCINATIONS 01/11/18) Disposition Summary Disposition Principal Diagnosis: Acute subdural hematoma along the midportion of the falx cerebri with maximal thickness of 3 mm Symptomatic UTI -culture negative Additional Diagnosis: hypertension, hyperlipidemia, hypothyroidism, history of parathyroidectomy because of parathyroid adenoma, hypercalcemia, cerebellar stroke(2009), renal insufficiency, Parkinson's disease(2015), carotid stenosis, history of pacemaker(secondary to asystole by Dr. Wilson in 2010, angioplasty( 2010) Discharge Disposition: SNF Discharge Instructions General Discharge Information Code Status: Full Code Patient's Diet: regular diet Patient's Activity: as tolerated with fall precaution Follow-Up Instructions/Appts: please follow up with PCP with in a week of discharge. Please follow up with neurologist with in a week of dischrge. Patient will need CT scan within a week of discharge for further follow-up of size of SDH. Medications at Discharge Discharge Medications: Continue taking these medications: Carbidopa/Levodopa (Carbidopa-Levodopa 25-100 Tab) 25 MG-100 MG TABLET 1 Tablet ORAL THREE TIMES DAILY Qty = 135 Comments: Last Taken: 01/14/18 Time: 14:00 Dabigatran Etexilate Mesylat (Pradaxa) 150 MG CAPSULE 1 Capsule ORAL TWICE DAILY Qty = 60 Comments: Last Taken: 01/14/18 Time: 08:50 Melatonin (Melatonin) 3 MG TABLET 1 Tablet ORAL TAKE AT BEDTIME Qty = 30 Comments: Last Taken: 01/13/18 Time: 20:17 Quetiapine Fumarate (Quetiapine Fumarate) 25 MG TABLET 25 Tablet ORAL OD Qty = 30 Comments: NOT GIVEN IN THE HOSPITAL Rosuvastatin Calcium (Crestor) 40 MG TABLET 1 Tablet ORAL DAILY Qty = 30 Comments: NOT GIVEN IN THE HOSPITAL Levothyroxine Sodium (Levothyroxine Sodium) 25 MCG TABLET 1 Tablet ORAL DAILY Qty = 30 Comments: Last Taken: 01/14/18 Time: 05:22 Ascorbate Calcium (Vitamin C) 500 MG TABLET 1 ORAL DAILY Comments: DID NOT TAKE IN THE HOSPITAL Cholecalciferol (Vitamin D3) (Vitamin D) 1,000 UNIT TABLET 1 ORAL DAILY Comments: DID NOT TAKE IN THE HOSPITAL Ferrous Sulfate (IRON) 325 MG (65 MG IRON) TABLET 1 Tablet ORAL DAILY Comments: Last Taken: 01/14/18 Time: 05:23 Lactobacillus Acidophilus (Acidophilus) 1 EACH CAPSULE 1 Capsule ORAL DAILY Comments: Last Taken: 01/14/18 Time: 08:50 Copies To: David CHOWDHURY,Javier Hughes; Martina CHOWDHURY,Adria Jiang Attending MD Review Statement Documenting Attending: Xavier CHOWDHURY,Lynn
--- NOTE | 2018-01-14 11:31 | PN- Att Addend ---
Attending Addendum Attending Brief Note Patient seen and examined, claims that he's feeling well. He denies any headaches any visual problems. His mental status is back to his baseline. His Pradaxa has been resumed after this was discussed with the neurologist Dr. Ogden. Vital Signs Date Time Temp Pulse Resp B/P B/P Pulse O2 O2 Flow FiO2 Mean Ox Delivery Rate 01/14 1056 Room Air 01/14 1052 Room Air 01/14 1041 Room Air 01/14 0620 97.6 60 18 116/60 95 Room Air 01/14 0000 Room Air 01/13 2135 97.7 66 20 110/58 95 01/13 1410 97.4 70 20 120/80 97 Room Air on exam; awake, nad. cv; s1,s2, + systolic murmur. resp; clear abd: soft, nt, bs+ ext: trace edema Laboratory Tests 01/14 07 Hematology CBC w Diff NO MAN DIFF REQ WBC (4.8 - 10.8 /CUMM) 7.1 RBC (4.70 - 6.10 /CUMM) 3.73 L Hgb (14.0 - 18.0 G/DL) 11.5 L Hct (42 - 52 %) 34.5 L MCV (80.0 - 94.0 FL) 92.5 MCH (27.0 - 31.0 PG) 30.7 MCHC (33.0 - 37.0 G/DL) 33.2 RDW (11.5 - 14.5 %) 13.9 Plt Count (130 - 400 /CUMM) 180 MPV (7.4 - 10.4 FL) 7.5 Gran % (42.2 - 75.2 %) 73.3 Lymphocytes % (20.5 - 51.1 %) 14.0 L Monocytes % (1.7 - 9.3 %) 8.0 Eosinophils % (0 - 5 %) 4.5 Basophils % (0.0 - 2.0 %) 0.2 Absolute Granulocytes (1.4 - 6.5 /CUMM) 5.2 Absolute Lymphocytes (1.2 - 3.4 /CUMM) 1.0 L Absolute Monocytes (0.10 - 0.60 /CUMM) 0.6 Absolute Eosinophils (0.0 - 0.7 /CUMM) 0.3 Absolute Basophils (0.0 - 0.2 /CUMM) 0 A/P: 72 y/o M with pmh sig for hypertension, hyperlipidemia, hypothyroidism, history of parathyroidectomy because of parathyroid adenoma, hypercalcemia, cerebellar stroke(2009), renal insufficiency, Parkinson's disease(2016), carotid stenosis, history of pacemaker(secondary to asystole by Dr. Wilson in 2010, angioplasty(2010) found to have Acute subdural hematoma along the midportion of the falx cerebri with maximal thickness of 3 mm. Patient has been followed by neurology. Small subdural hematoma is stable. Nuplazid that was started recently by his neurologist for hallucinations is now stopped. Apparently was getting patient's nightmares. Housestaff over the weekend has discussed with his neurologist who agreed with stopping this medication. [email or web address] reported that he already discussed with Dr. Ogden from neurology about resuming patient's Pradaxa and he was okay with it. Pradaxa has been resumed. SDH is very stable and is a question if this was a true subdural hematoma versus some Calcium Deposits that were seen in that location. As he stated in his note: "This could hyperdensity could easily also be ossification with calcium deposits along the falx." No further recommendations were made by neurologist. As I mentioned that it was discussed with him over the weekend with housestaff and he was okay with resuming patient's Pradaxa. Patient otherwise back to his baseline. Seen by physical therapy and they recommended rehabilitation. If there is a bed availability at rehabilitation and he can likely be discharged. Continue to hold Nuplazid and he should follow up with his own Neurologist.
[2018-01-14 14:06] VITALS: BP 108/72
[2018-01-14 14:53] VITALS: BP 108/72
== END 2018-01-14 15:30 | DRG 65 ==
LOC: ERH 08:42 → 2NA 11:38 → ERHI 11:38 → ENRESERV 12:25 → ENTRNSPT 12:49 → EDTRNSPTSTS 13:10 → EDTRNSPT 13:10 → 2NA 13:26 → CMPTRNSPT 13:38 → 2NA 01-14 08:27 → ENPENDDIS 01-14 14:42 → 2NA 01-14 15:30
PROVIDERS: Emergency Medicine; Internal Medicine Adolescent Medicine; Student in an Organized Health Care Education/Training Program
DX: I62.01 Nontraumatic acute subdural hemorrhage (principal); F05 Delirium due to known physiological condition; G20 Parkinson's disease; E83.52 Hypercalcemia; R44.0 Auditory hallucinations; E03.9 Hypothyroidism, unspecified; E78.5 Hyperlipidemia, unspecified; N28.9 Disorder of kidney and ureter, unspecified; I10 Essential (primary) hypertension; R44.1 Visual hallucinations; F02.80 Dementia in other diseases classified elsewhere, unspecified severity, without behavioral disturbance, psychotic disturbance, mood disturbance, and anxiety; Z86.73 Personal history of transient ischemic attack (TIA), and cerebral infarction without residual deficits; Z98.61 Coronary angioplasty status; Z88.0 Allergy status to penicillin; Z90.89 Acquired absence of other organs; Z95.0 Presence of cardiac pacemaker
CPT/HCPCS: 2NASP; 36592; 81001; 82436; 87086; 93005; 93010; 97110-GO; 97116-GO; 97161-GP; 97530-GO; J0696